=== PATIENT | female | born 1955 | race Two or more races ===

== ENCOUNTER 2018-09-10 13:18 | Outpatient (CLI) | payer OTHER | END 2018-09-10 13:21 | disposition home or self-care (01) | LOC: SONOGRAMA 13:18 | DX: E03.8 Other specified hypothyroidism (principal); R10.2 Pelvic and perineal pain ==

== ENCOUNTER 2018-10-21 12:27 | Outpatient (CLI) | payer OTHER | END 2018-10-21 16:28 | disposition home or self-care (01) | LOC: NUCLEAR 12:27 | DX: M81.0 Age-related osteoporosis without current pathological fracture (principal) ==

== ENCOUNTER 2018-10-25 09:53 | Outpatient (CLI) | payer OTHER | END 2018-10-25 14:54 | disposition home or self-care (01) | LOC: LAB 09:53 | DX: N20.0 Calculus of kidney (principal); Z51.81 Encounter for therapeutic drug level monitoring ==

== ENCOUNTER 2018-10-25 10:45 | Outpatient (CLI) | payer OTHER | END 2018-10-25 14:54 | disposition home or self-care (01) | LOC: MRI 10:45 | DX: R41.3 Other amnesia (principal); D49.6 Neoplasm of unspecified behavior of brain; G40.909 Epilepsy, unspecified, not intractable, without status epilepticus | CPT/HCPCS: 70553 ==

== ENCOUNTER 2019-01-03 06:42 | Day surgery (SDC) | payer OTHER | END 2019-01-03 10:20 | disposition home or self-care (01) | LOC: AMB-ENDOS 06:42 | DX: D12.4 Benign neoplasm of descending colon (principal); K57.30 Diverticulosis of large intestine without perforation or abscess without bleeding; K64.1 Second degree hemorrhoids ==

== ENCOUNTER 2020-05-31 12:02 | Outpatient (CLI) | payer OTHER | END 2020-05-31 12:16 | disposition home or self-care (01) | LOC: MRI 12:02 | PROVIDERS: ATTEND Neuromusculoskeletal Medicine & OMM | DX: I72.8 Aneurysm of other specified arteries (principal); I65.1 Occlusion and stenosis of basilar artery; I65.09 Occlusion and stenosis of unspecified vertebral artery; I65.29 Occlusion and stenosis of unspecified carotid artery; Q28.2 Arteriovenous malformation of cerebral vessels | CPT/HCPCS: 70544 ==

== ENCOUNTER 2022-10-17 14:02 | Emergency (ER) | payer OTHER ==
[~2022-10-17] VITALS: Ht 162.6 cm; Wt 91.2 kg
[2022-10-17] MEDS ORDERED: SYNTHROID100 MCG PO (15:32)
[2022-10-17] MEDS ORDERED: CELEBREX200MG PO (17:28)
== END 2022-10-17 17:57 | disposition home or self-care (01) ==
LOC: ER 14:02
DX: M72.2 Plantar fascial fibromatosis (principal); Z88.0 Allergy status to penicillin

== ENCOUNTER 2025-03-09 10:09 | Outpatient (CLI) | payer OTHER ==
[~2025-03-09 10:09] MED LIST: CELEBREX200MG PO; SYNTHROID100 MCG PO
== END 2025-03-09 10:14 | disposition home or self-care (01) ==
LOC: SONOGRAMA 10:09
PROVIDERS: ATTEND Internal Medicine Nephrology
DX: N18.1 Chronic kidney disease, stage 1 (principal)

== ENCOUNTER 2025-03-20 08:15 | Outpatient (CLI) | payer OTHER | END 2025-03-20 08:24 | disposition home or self-care (01) | LOC: TOM 08:15 | PROVIDERS: ATTEND Internal Medicine Gastroenterology | DX: R10.32 Left lower quadrant pain (principal) ==

== ENCOUNTER 2025-03-30 09:40 | Outpatient (CLI) | payer OTHER | END 2025-03-30 09:44 | disposition home or self-care (01) | LOC: RAD 09:40 | PROVIDERS: ATTEND Podiatrist Foot Surgery | DX: M20.41 Other hammer toe(s) (acquired), right foot (principal); M20.42 Other hammer toe(s) (acquired), left foot ==

== ENCOUNTER 2025-07-11 11:50 | Outpatient (CLI) | payer OTHER | END 2025-07-11 12:08 | disposition home or self-care (01) | LOC: MRI 11:50 | PROVIDERS: ATTEND General Practice | DX: M25.562 Pain in left knee (principal); D18.03 Hemangioma of intra-abdominal structures | CPT/HCPCS: 73721; 74183; Q9965; 74182 ==

== ENCOUNTER 2025-07-24 09:54 | Outpatient (CLI) | payer OTHER | END 2025-07-24 09:59 | disposition home or self-care (01) | LOC: MAMO-SONO 09:54 | PROVIDERS: ATTEND Student in an Organized Health Care Education/Training Program | DX: N60.11 Diffuse cystic mastopathy of right breast (principal); N60.12 Diffuse cystic mastopathy of left breast; Z12.31 Encounter for screening mammogram for malignant neoplasm of breast ==